=== PATIENT | male | born 1990 | race Caucasian/White ===

== ENCOUNTER 2018-01-21 06:01 | Emergency (ER) | payer SELFPAY ==
[~2018-01-21] VITALS: Ht 175.3 cm; Wt 74.5 kg
[2018-01-21 06:02] VITALS: BP 167/98; PULSE 105; TEMP 98.9
== END 2018-01-21 06:34 | disposition left against medical advice (07) ==
LOC: COL.ER 06:01
DX: S01.25XA Open bite of nose, initial encounter (principal); W54.0XXA Bitten by dog, initial encounter